=== PATIENT | male | born 1980 | race Caucasian/White ===

== ENCOUNTER 2023-06-11 15:30 | Inpatient (IN) ==
[2023-06-11] MEDS: LACTATED RINGERS 1,000 ML IV ONE (15:55)
[2023-06-11] MEDS: IPRATROPIUM/ALBUTEROL 3 ML AMPUL.NEB NEB ONE (16:16)
[2023-06-11] MEDS: fentaNYL 100 MCG/2 ML VIAL IV ONE (16:18)
[2023-06-11 16:23] LABS: POC Calcium, Ionized 1.21 (1.16-1.32); POC Potassium 3.7 (3.3-5.1)
[2023-06-11 16:55] LABS: Basophils # (Auto) 0.05 K/mcL (0.00-0.30); Basophils % (Auto) 0.2 % (0.0-2.0); Eosinophils # (Auto) 0.22 K/mcL (0.00-0.70); Eosinophils % (Auto) 0.7 % (0.0-7.0); Hematocrit 39.3 % (40.1-51.0); Hemoglobin 12.5 g/dL (13.7-17.5); Lymphocytes # (Auto) 1.04 K/mcL (1.50-4.80); Lymphocytes % (Auto) 3.4 % (15.5-49.0); Mean Cell Volume 92.7 fL (80.0-100.0); Mean Corpuscular HGB Conc 31.8 g/dL (31.0-36.0); Monocytes # (Auto) 0.48 K/mcL (0.10-0.90); Monocytes % (Auto) 1.6 % (1.0-12.0); Neutrophils % (Auto) 93.6 % (38.0-78.0); Platelet Count 448 K/mcL (140-440); RBC 4.24 M/mcL (4.63-6.08); Red Cell Distribution Width 13.9 % (11.5-14.5); WBC 30.3 K/mcL (4.5-11.0)
[2023-06-11 17:13] LABS: ALT/SGPT 20 U/L (<40); AST/SGOT 35 U/L (<40); Albumin 3.9 gm/dL (3.2-5.2); Albumin/Globulin Ratio 1.2 (1.0-2.3); Alkaline Phosphatase 115 U/L (39-117); Bilirubin,Total 0.2 mg/dL (0.1-1.0); Blood Urea Nitrogen 13 mg/dL (6-20); Calcium 9.6 mg/dL (8.6-10.4); Carbon Dioxide 19 mmol/L (22-30); Chloride 105 mmol/L (96-108); Globulin 3.3 gm/dL (2.2-3.7); Glomerular Filtration Rate 92; Glucose 132 mg/dL (70-105)
[2023-06-11] MEDS: PIPERACILLIN SODIUM/TAZOBACTAM 3.375 GM in DEXTROSE 5% IN WATER 50 ML IV ONE (17:30)
[2023-06-11] MEDS: AZITHROMYCIN 500 MG in DEXTROSE 5% IN WATER 250 ML IV ONE (18:03)
[2023-06-11] MEDS: VANCOMYCIN 2,000 MG in 0.9 % SODIUM CHLORIDE 500 ML IV ONE (19:08)
[2023-06-11] MEDS: HYDROcodone/APAP 5/325MG TABLET PO ONE (20:28)
[2023-06-11] MEDS ORDERED: SENNOSIDES 1 TABLET PO PRN (21:19)
[2023-06-11] MEDS ORDERED: LACTULOSE 20 GM/30 ML ORAL.SOL PO PRN (21:19)
[2023-06-11] MEDS ORDERED: ONDANSETRON 4 MG/2 ML VIAL IV PRN (21:19)
[2023-06-11] MEDS: 0.9 % SODIUM CHLORIDE 10 ML SYRINGE IV SCH (21:29)
[2023-06-11] MEDS: 0.9 % SODIUM CHLORIDE 1,000 ML IV SCH (21:29)
[2023-06-11] MEDS: oxyCODONE IR 5 MG TABLET PO PRN (21:55)
[2023-06-11] MEDS: DOCUSATE SODIUM 100 MG CAPSULE PO SCH (21:57)
[2023-06-11] MEDS: diphenhydrAMINE 25 MG CAPSULE PO PRN (23:05)
[2023-06-12 06:06] LABS: ALT/SGPT 16 U/L (<40); AST/SGOT 27 U/L (<40); Albumin 3.6 gm/dL (3.2-5.2); Albumin/Globulin Ratio 1.2 (1.0-2.3); Alkaline Phosphatase 105 U/L (39-117); Bilirubin,Direct < 0.2 mg/dL (0-0.3); Bilirubin,Total 0.2 mg/dL (0.1-1.0); Blood Urea Nitrogen 11 mg/dL (6-20); Calcium 9.4 mg/dL (8.6-10.4); Carbon Dioxide 20 mmol/L (22-30); Chloride 107 mmol/L (96-108); Globulin 3.1 gm/dL (2.2-3.7); Glomerular Filtration Rate 110; Glucose 111 mg/dL (70-105); Lactate Dehydrogenase 328 U/L (135-225); Triglycerides 64 mg/dL (<150)
[2023-06-12 07:08] LABS: Basophils # (Auto) 0.04 K/mcL (0.00-0.30); Basophils % (Auto) 0.2 % (0.0-2.0); Eosinophils # (Auto) 0.01 K/mcL (0.00-0.70); Eosinophils % (Auto) 0 % (0.0-7.0); Hematocrit 37.1 % (40.1-51.0); Hemoglobin 11.8 g/dL (13.7-17.5); Lymphocytes # (Auto) 1.88 K/mcL (1.50-4.80); Lymphocytes % (Auto) 7.2 % (15.5-49.0); Mean Corpuscular HGB Conc 31.8 g/dL (31.0-36.0); Monocytes # (Auto) 0.57 K/mcL (0.10-0.90); Monocytes % (Auto) 2.2 % (1.0-12.0); Neutrophils % (Auto) 89.9 % (38.0-78.0); Platelet Count 410 K/mcL (140-440); RBC 3.99 M/mcL (4.63-6.08); WBC 26.1 K/mcL (4.5-11.0)
[2023-06-12] MEDS ORDERED: IOPAMIDOL 100 ML BOTTLE IV ONE (07:16)
[2023-06-12] MEDS ORDERED: ALBUTEROL SULFATE 60 PUFF INHALER INH PRN (07:41)
[2023-06-12] MEDS: TAMSULOSIN 0.4 MG CAPSULE PO SCH (08:53)
[2023-06-12] MEDS: buPROPion 100 MG TAB.SR.12H PO SCH (08:53)
[2023-06-12] MEDS: cefTRIAXone 1 GM VIAL IV SCH (08:53)
[2023-06-12] MEDS: ENOXAPARIN 40 MG/0.4 ML SYRINGE SQ SCH (08:54)
[2023-06-12] MEDS: lamoTRIgine 25 MG TABLET PO SCH (09:11)
[2023-06-12] MEDS: VRAYLAR 3 MG CAPSULE PO SCH (10:28)
[2023-06-12] MEDS: VRAYLAR 1.5 MG CAPSULE PO SCH (10:28)
[2023-06-12] MEDS: AZITHROMYCIN 500 MG in DEXTROSE 5% IN WATER 250 ML IV SCH (11:11)
[2023-06-12] MEDS: CARIPRAZINE 3 MG PO SCH (11:35)
[2023-06-12] MEDS: LITHIUM CARBONATE 450 MG TAB.SR.12H PO SCH (11:35)
[2023-06-12] MEDS: IBUPROFEN 200 MG TABLET PO PRN (12:23)
[2023-06-13] MEDS: oxyCODONE IR 5 MG TABLET PO PRN (04:55)
[2023-06-13] MEDS: oxyCODONE IR 5 MG TABLET PO ONE (05:41)
[2023-06-13 06:19] LABS: Basophils # (Auto) 0.08 K/mcL (0.00-0.30); Basophils % (Auto) 0.6 % (0.0-2.0); Eosinophils # (Auto) 0.73 K/mcL (0.00-0.70); Eosinophils % (Auto) 5.2 % (0.0-7.0); Hematocrit 36.5 % (40.1-51.0); Hemoglobin 11.6 g/dL (13.7-17.5); Lymphocytes # (Auto) 2.39 K/mcL (1.50-4.80); Lymphocytes % (Auto) 16.9 % (15.5-49.0); Mean Cell Volume 92.6 fL (80.0-100.0); Mean Corpuscular HGB Conc 31.8 g/dL (31.0-36.0); Mean Platelet Volume 9.2 fL (8.8-12.5); Monocytes # (Auto) 1.08 K/mcL (0.10-0.90); Monocytes % (Auto) 7.6 % (1.0-12.0); Neutrophils % (Auto) 69.3 % (38.0-78.0); Platelet Count 415 K/mcL (140-440); RBC 3.94 M/mcL (4.63-6.08); WBC 14.1 K/mcL (4.5-11.0)
[2023-06-13 06:48] LABS: ALT/SGPT 43 U/L (<40); AST/SGOT 35 U/L (<40); Albumin 3.4 gm/dL (3.2-5.2); Albumin/Globulin Ratio 1.2 (1.0-2.3); Alkaline Phosphatase 94 U/L (39-117); Bilirubin,Direct < 0.2 mg/dL (0-0.3); Bilirubin,Total < 0.2 mg/dL (0.1-1.0); Blood Urea Nitrogen 16 mg/dL (6-20); Calcium 9.1 mg/dL (8.6-10.4); Carbon Dioxide 23 mmol/L (22-30); Chloride 108 mmol/L (96-108); Globulin 2.8 gm/dL (2.2-3.7); Glomerular Filtration Rate 105; Glucose 108 mg/dL (70-105); Lactate Dehydrogenase 245 U/L (135-225); Phosphorous 2.7 mg/dL (2.5-4.5); Triglycerides 92 mg/dL (<150); Uric Acid 5.4 mg/dL (2.5-8.0)
== END 2023-06-13 11:49 | disposition home or self-care (01) | DRG 871 ==
LOC: ED 15:30 → ICU 21:15
PROVIDERS: ADMIT Internal Medicine; ATTEND Internal Medicine